=== PATIENT | female | born 2005 | race Two or more races ===

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

== ENCOUNTER 2025-05-05 03:50 | Emergency (ER) | payer MEDICAID ==
[~2025-05-05] VITALS: Ht 160 cm; Wt 61.3 kg
[2025-05-05 03:55] VITALS: BP 109/70; PULSE 116; RESP 18; TEMP 97.5; O2SAT 98
--- NOTE | 2025-05-05 03:55 | ED.PDOC ---
Eye-HPI HPI Comments PT CAME TO THE ER WITH CC OF WHITE PATCHES ON THE TONGUE PT IS A&OX4, CURRENTLY 26 WEEKS , RR EVEN AND REGULAR NO DISTRESS NOTED AT THIS TIME, PT DENIES ALL OTHER SYMPTOMS DENIES ABDOMINAL PAIN, CRAMPING VAGINAL BLEEDING AND SPOTTING DENIES DIFFICULTY BREATHING CHEST PAIN OR SHORTNESS OF BREATH. Time Seen by MD: 03:53 Reviewed Notes: Nurses Notes, Medications, Allergies Allergies: Coded Allergies: NO KNOWN ALLERGIES (Unverified , 04/12/23) Home Meds Active Scripts Lidocaine HCl (Mouth-Throat) (Lidocaine Viscous) 2 % Nasima, 6 ML MT Q4HP PRN for 7 Days, #200 ML swish and spit out Prov:MAGGIE PEREZ [employer]PERVISOR 05/05/25 Nystatin (Mouth-Throat) (Mycostatin (Mouth-Throat)) 500,000 Units/5 Ml Ss, 5 ML MT QID for 10 Days, #200 ML swish and retain as long as possible in mouth and spit out Prov:MAGGIE PEREZ [employer]ING [employer] SUPERVISOR 05/05/25 Ondansetron Odt 4MG Tab (ZOFRAN PO) 4 Mg Tb, 4 MG PO Q8HP PRN, #10 TAB ODT TAB-DISSOLVE IN MOUTH, THEN SWALLOW Prov:RADHA DURBIN PAC 04/12/23 Information Source: Patient Past Medical History PAST MEDICAL HISTORY: Denies Surgical History: Denies all surgeries TABBER History: No Pertinent TABBER History Family History Family History: Reviewed,noncontributory to illness Social History Smoker: Non-Smoker Alcohol: Denies ETOH Use Drugs: Denies Drug Use Lives In: Home All Other Systems: Reviewed and Negative (SEE HPI) Physical Exam General Appearance: No Apparent Distress, Normal HEENT: Pharynx Normal, TMs Normal, Other (WHITE THICK COATED FILM ON TONGUE ERYTHEMIC GUMS AND TONGUE NO NOTED OPEN LESIONS) Neck: Full Range of Motion, Non-Tender Respiratory: Lungs Clear, No Respiratory Distress, Normal Breath Sounds Cardiovascular: No Edema, No JVD, No Murmur, No Gallop, Normal Peripheral Pulses, Regular Rate/Rhythm Breast Exam: Deferred Gastrointestinal: No Organomegaly, Non Tender, No Pulsatile Mass, Normal Bowel Sounds, Soft Genitalia: Deferred Pelvic: Deferred Rectal: Deferred Extremities: Normal range of motion, No pedal edema Musculoskeletal : Apperance: Normal Neurologic: Alert, No Motor Deficits, Normal Affect, Normal Mood, No Sensory Deficits Cerebellar Function: Normal Reflexes: NOT DONE Skin: Dry, Normal Color, Warm Lymphatic: No Adenopathy Was a procedure done? Was a procedure done?: No EENT DIFF Eye: N/A Ear: N/A Nose: N/A Mouth: AIDS, Esophageal candidiasis, Herpangina, Herpes Simplex, Immunode ficiency, Thrush X-Ray, Labs, Meds, VS Vital Signs Date Time Temp Pulse Resp B/P (MAP) Pulse Ox O2 Delivery O2 Flow Rate FiO2 05/05/25 03:55 97.5 116 18 109/70 98 97.5 X-Ray, Labs, Meds, VS Comment LIKELY THRUSH. SCRIPT TRIAL OF NYSTATIN AND LIDOCAINE. ADVISED TO TAKE MEDICATION PRESCRIBED SIDE EFFECTS DISCUSSED. ADVISED TO FOLLOW UP WITH HER PCP IN 2-3 DAYS NECESSARY. ER RETURN PRECAUTIONS GIVEN PATIENT INDICATES UNDERSTANDING AGREES WITH DISCHARGE PLAN OF CARE. Time of 1ST Reevaluation: 03:53 Reevaluation 1ST: Unchanged Time of 2ND Reevaluation: 04:19 Reevaluation 2ND: Improved Patient Education/Counseling: Diagnosis, Treatment, Need For Follow Up Family Education/Counseling: Diagnosis, Treatment SEPSIS Sepsis Screen Vital Signs Date Time Temp Pulse Resp B/P (MAP) Pulse Ox O2 Delivery O2 Flow Rate FiO2 05/05/25 03:55 97.5 116 18 109/70 98 97.5 Departure 1 Departure Time of Disposition: 04:19 Impression: Primary Impression: Thrush, oral Disposition: 01 HOME / SELF CARE / HOMELESS Condition: Stable e-Prescriptions Lidocaine HCl (Mouth-Throat) (Lidocaine Viscous) 2 % Nasima 6 ML MT Q4HP PRN for 7 Days, #200 ML swish and spit out Prov: MAGGIE PEREZ 05/05/25 Nystatin (Mouth-Throat) (Mycostatin (Mouth-Throat)) 500,000 Units/5 Ml Ss 5 ML MT QID for 10 Days, #200 ML swish and retain as long as possible in mouth and spit out Prov: MAGGIE PEREZ 05/05/25 Discharged With: Significant Other Critical Care Note Critical Care Time?: No Stability Stability form required: No MAGGIE PEREZ May 05, 2025 03:55
[2025-05-05] MEDS ORDERED: LIDO2SOL MT (04:07)
[2025-05-05] MEDS ORDERED: NYS5LQ MT (04:07)
[2025-05-05] MEDS: LIDOCAINE VISCOUS 2% 15ML UD MT ONE (04:24)
== END 2025-05-05 04:25 | disposition home or self-care (01) ==
LOC: ER 03:50
DX: B37.0 Candidal stomatitis (principal); Z79.899 Other long term (current) drug therapy